=== PATIENT | male | born 1985 | race American Indian/Alaskan Native ===

== ENCOUNTER 2018-04-06 01:11 | Emergency (ER) | payer MEDICARE, MEDICAID ==
[2018-04-06 01:54] VITALS: BP 114/72
[2018-04-06 02:25] LABS: Basophils # (Auto) 0.2 K/mm3 (0.0-0.1); Eosinophils # (Auto) 0.4 K/mm3 (0.0-0.4); Eosinophils % (Auto) 2.6 % (0.0-4.3); Hemoglobin 8.9 gm/dl (11.8-15.2); Lymphocytes % (Auto) 18.9 % (13.4-35.0); Mean Corpuscular HGB Conc 37 % (32-34); Mean Corpuscular Hemoglobin 33 pg (28-32); Mean Corpuscular Volume 90 fl (84-94); Monocytes # (Auto) 1.5 K/mm3 (0.0-0.8); Monocytes % (Auto) 9.2 % (0.0-7.3); Red Blood Count 2.66 M/mm3 (3.65-5.03)
[2018-04-06 02:37] LABS: Platelet Count 265 K/mm3 (140-440); Red Cell Distribution Width 24.3 % (13.2-15.2)
[2018-04-06 02:42] LABS: Alanine Aminotransferase 71 units/L (7-56); Albumin 4.3 g/dL (3.9-5); BUN/Creatinine Ratio 28; Blood Urea Nitrogen 11 mg/dL (9-20); Calcium 8.9 mg/dL (8.4-10.2); Hemolysis Index 23
[2018-04-06 02:50] LABS: Bilirubin,Urine NEG (Negative); Blood,Urine SM (Negative); Color,Urine Yellow (Yellow); Protein,Urine <15 mg/dL mg/dL (Negative); WBC,Urine < 1.0 /HPF (0.0-6.0)
[2018-04-06 02:55] LABS: RBC,Urine < 1.0 /HPF (0.0-6.0)
== END 2018-04-06 05:26 ==
LOC: ED 01:11
DX: D57.219 Sickle-cell/Hb-C disease with crisis, unspecified (principal); Z53.21 Procedure and treatment not carried out due to patient leaving prior to being seen by health care provider
CPT/HCPCS: 36415; 80053; 81001; 85025; 85045; 93005; 93010

== ENCOUNTER 2019-07-29 09:58 | Emergency (ER) | payer MEDICAID, OTHER ==
[2019-07-29] MEDS ORDERED: HYDROcodone/ACETAMINOPHEN 10-325MG TAB PO ONE (11:55)
[2019-07-29] MEDS ORDERED: IBUPROFEN 800 MG TAB PO ONE (12:00)
--- NOTE | 2019-07-29 12:22 | XRay Report ---
RIGHT HAND 4 VIEWS INDICATION / CLINICAL INFORMATION: Right hand pain. COMPARISON: None available. FINDINGS: BONES / JOINT(S): No acute fracture or subluxation. No significant arthritis. SOFT TISSUES: There is mild to moderate diffuse soft tissue swelling involving the dorsum of the hand . ADDITIONAL FINDINGS: None. IMPRESSION: Generalized soft tissue swelling involving the dorsum of the hand without acute osseous a bnormality. Signer Name: Oseas Watkins MD Signed: 07/29/2019 12:17 PM Workstation Name: [id number]
--- NOTE | 2019-07-29 12:33 | Emergency Department Report ---
ED Upper Extremity Inj HPI - General Chief Complaint: Extremity Injury, Upper Stated Complaint: R HAND SWOLLEN/PAIN Time Seen by Provider: 07/29/19 11:35 Source: patient Mode of arrival: Ambulatory Limitations: No Limitations - History of Present Illness Initial Comments: This is a 33-year-old male nontoxic, well nourished in appearance, no acute signs of distress presents to the ED with c/o of right hand pain. Patient stated that he injured it at work. Patient denies any other trauma. Patient denies any numbness, tingling, fever, chills, nausea, vomiting, chest pain, shortness of breath, headache, stiff neck. Patient denies any joint swelling or joint redness. Patient denies decreased range of motion. Patient denies any allergies or significant past medical history. MD Complaint: Injury to:: right, hand -: days(s) Other Extremity Injury: Hand: Right Place: work Severity scale (0 -10): 8 Improves With: immobilization Worsens With: movement of extremity Associated Symptoms: denies other symptoms. denies: weakness, numbness, neck pain, suspects foreign body, nausea/vomiting, heard/felt popping sensat - Related Data Home Medications Medication Instructions Recorded Confirmed Last Taken Deferasirox [Exjade] 4 caplet PO 02/06/14 02/06/14 Unknown Folic Acid [Folvite] 1 mg PO 02/06/14 02/06/14 02/05/14 Hydroxyurea [Droxia] 1,500 mg PO QDAY 02/06/14 02/06/14 Unknown Previous Rx's Medication Instructions Recorded Last Taken Type HYDROcodone/APAP 5-325 [[place] 1 each PO Q6HR PRN #20 tablet 02/06/14 Unknown Rx 5/325 mg] Ibuprofen [Motrin] 600 mg PO Q8H PRN #30 tablet 01/09/15 Unknown Rx methOCARBAMOL [Robaxin] 500 mg PO BID #10 tab 01/09/15 Unknown Rx traMADol [Ultram] 50 mg PO Q6HR PRN #14 tablet 01/09/15 Unknown Rx Ibuprofen [Motrin] 600 mg PO Q8H PRN #20 tablet 07/29/19 Unknown Rx Allergies Allergy/AdvReac Type Severity Reaction Status Date / Time red blood cell Allergy Hives Uncoded 04/06/18 01:50 ED Review of Systems ROS: Stated complaint: R HAND SWOLLEN/PAIN Other details as noted in HPI Constitutional: denies: chills, fever Eyes: denies: eye pain, eye discharge, vision change ENT: denies: ear pain, throat pain Respiratory: denies: cough, shortness of breath, wheezing Cardiovascular: denies: chest pain, palpitations Endocrine: no symptoms reported Gastrointestinal: denies: abdominal pain, nausea, diarrhea Genitourinary: denies: urgency, dysuria Musculoskeletal: denies: back pain, joint swelling, arthralgia Skin: denies: rash, lesions Neurological: denies: headache, weakness, paresthesias Psychiatric: denies: anxiety, depression Hematological/Lymphatic: denies: easy bleeding, easy bruising ED Past Medical Hx - Past Medical History Hx CVA: Yes (CVA 1995, 2012) Additional medical history: Sickle Cell; monthly blood transfusions - Surgical History Past Surgical History?: No - Social History Smoking Status: Former Smoker Substance Use Type: None - Medications Home Medications: Home Medications Medication Instructions Recorded Confirmed Last Taken Type Deferasirox [Exjade] 4 caplet PO 02/06/14 02/06/14 Unknown History Folic Acid [Folvite] 1 mg PO 02/06/14 02/06/14 02/05/14 History HYDROcodone/APAP 5-325 [[place] 1 each PO Q6HR PRN #20 tablet 02/06/14 Unknown Rx 5/325 mg] Hydroxyurea [Droxia] 1,500 mg PO QDAY 02/06/14 02/06/14 Unknown History Ibuprofen [Motrin] 600 mg PO Q8H PRN #30 tablet 01/09/15 Unknown Rx methOCARBAMOL [Robaxin] 500 mg PO BID #10 tab 01/09/15 Unknown Rx traMADol [Ultram] 50 mg PO Q6HR PRN #14 tablet 01/09/15 Unknown Rx Ibuprofen [Motrin] 600 mg PO Q8H PRN #20 tablet 07/29/19 Unknown Rx ED Physical Exam - General Limitations: No Limitations General appearance: alert, in no apparent distress - Head Head exam: Present: atraumatic, normocephalic - Neck Neck exam: Present: normal inspection, full ROM. Absent: tenderness, meningismus, lymphadenopathy - Extremities Exam Extremities exam: Present: normal inspection, full ROM, tenderness, normal capillary refill. Absent: joint swelling - Expanded Upper Extremity Exam Right General: Present: normal inspection Shoulder Exam: Present: normal inspection, full ROM. Absent: tenderness Upper Arm exam: Present: normal inspection, full ROM. Absent: tenderness Elbow exam: Present: normal inspection, full ROM. Absent: tenderness Forearm Wrist exam: Present: normal inspection, full ROM. Absent: tenderness Hand Wrist exam: Present: normal inspection, full ROM, tenderness, swelling, ecchymosis. Absent: abrasion, laceration, deformity, crepidus, dislocation, erythema, amputation, nail avulsion, subungual hematoma Vascular: Present: vascular compromise, normal capillary refill - Back Exam Back exam: Present: normal inspection, full ROM - Neurological Exam Neurological exam: Present: alert, oriented X3, normal gait - Psychiatric Psychiatric exam: Present: normal affect, normal mood - Skin Skin exam: Present: warm, dry, intact, normal color. Absent: rash ED Course Vital Signs 07/29/19 10:07 Temperature 98.6 F Pulse Rate 89 Respiratory 20 Rate Blood Pressure 124/54 O2 Sat by Pulse 97 Oximetry - Reevaluation(s) Reevaluation #1: 07/29/19 12:31 Patient is speaking in full sentences with no signs of distress noted. ED Medical Decision Making - Medical Decision Making This is a 33-year-old female that presents with right hand strain. Patient is stable and was examined by me. I referred patient to an orthopedic doctor for further evaluation for possible MRI. X-ray has been obtained and dictated by the radiologist. Patient is notified of the x-ray report with noted by the patient. Patient does have normal gait with no tenderness and no joint swelling. No ecchymosis. no joint redness or swelling. Not warm to touch. No signs of cellulites present. Patient was instructed to RICE therapy. Patient received Motrin for pain. Patient is discharged with Motrin. At time of discharge, the patient does not seem toxic or ill in appearance. No acute signs of distress noted. Patient agrees to discharge treatment plan of care. No further questions noted by the patient. Critical care attestation.: If time is entered above; I have spent that time in minutes in the direct care of this critically ill patient, excluding procedure time. ED Disposition Clinical Impression: Strain of right hand Qualifiers: Encounter type: initial encounter Qualified Code(s): S66.911A - Strain of un specified muscle, fascia and tendon at wrist and hand level, right hand, initial encounter Disposition: DC-01 TO HOME OR SELFCARE Is pt being admited?: No Does the pt Need Aspirin: No Condition: Stable Instructions: RICE Therapy (ED) Additional Instructions: Follow-up with a orthopedic doctor in 3-5 days or if symptoms worsen and continue return to emergency room as soon as possible. Prescriptions: Ibuprofen [Motrin] 600 mg PO Q8H PRN #20 tablet PRN Reason: Pain Referrals: DAVID CM MD [Primary Care Provider] - 3-5 Days CARLEEN PRESTON MD [Staff Physician] - 3-5 Days [facility] [Outside] - 3-5 Days Forms: Work/School Release Form(ED)
[2019-07-29 12:52] VITALS: BP 121/60
== END 2019-07-29 12:51 | disposition home or self-care (01) ==
LOC: ED 09:58
DX: S66.911A Strain of unspecified muscle, fascia and tendon at wrist and hand level, right hand, initial encounter (principal); Z79.899 Other long term (current) drug therapy; Z87.891 Personal history of nicotine dependence; X58.XXXA Exposure to other specified factors, initial encounter; Y93.89 Activity, other specified; Y92.89 Other specified places as the place of occurrence of the external cause; Y99.8 Other external cause status
CPT/HCPCS: 99283